=== PATIENT | female | born 1950 | race Caucasian/White ===

== ENCOUNTER → 2018-05-16 | Outpatient (CLI) | payer OTHER | LOC: MC.RAD 07:59 | DX: R92.0 Mammographic microcalcification found on diagnostic imaging of breast (principal); Z98.82 Breast implant status ==

== ENCOUNTER 2021-09-14 07:59 | Day surgery (SDC) | payer OTHER ==
[~2021-09-14] VITALS: Ht 167.6 cm; Wt 95.1 kg
[2021-09-14] VITALS (10 sets, daily range): BP systolic 133–191; BP diastolic 46–70; PULSE 67–81; TEMP 97.6–98.4
[2021-09-14] MEDS ORDERED: COREG12.5 MG PO (09:10)
[2021-09-14] MEDS ORDERED: LANTUS100 U/ML IJ (09:10)
[2021-09-14] MEDS ORDERED: NORVASC 10MG10 MG PO (09:11)
[2021-09-14] MEDS ORDERED: ALTACE 10MG TAB10 MG PO (09:11)
[2021-09-14] MEDS ORDERED: JANUMXR100-1000 PO (09:12)
--- NOTE | 2021-09-14 09:13 | NUR ---
PATIENT STATES SHE CAN HAVE: SULFAMETHOXAZOLE-TMP DS AND CLINDAMYCIN.
--- NOTE | 2021-09-14 11:01 | NUR ---
Patient was taken back to radiology.
--- NOTE | 2021-09-14 11:55 | NUR ---
Patient returned from Radiology.
--- NOTE | 2021-09-14 17:03 | NUR ---
PT VOMIITED ON WAY TO RM FROM PACU AND RETAKE B/P IS 185/62 HR 69, RESP 16, 100%
--- NOTE | 2021-09-14 17:33 | NUR ---
DECREASED O2 FROM 2L BY NC TO 1L BY NC, O2 SAT 100%
--- NOTE | 2021-09-14 18:45 | NUR ---
here to see pt. Update on pt's elevated blood pressures given to provider. Provider okay with BPs now but if starting to stay above 180s call application software developer doctor. Also insulin orders changed by provider.
[2021-09-15 04:00] VITALS: BP 150/54; PULSE 75; TEMP 98.1
[2021-09-15 06:40] LABS: HEMOGLOBIN 11.2 g/dl (12.5-16.0); MEAN CELL VOLUME 92 fl (80.0-100.0); MEAN CORPUSCULAR HEMOGLOBIN 31 pg (27-31); MEAN CORPUSCULAR HGB CONC 34 g/dl (33.0-37.0); MEAN PLATELET VOLUME 10.4 fl (7.4-10.4); PLATELET COUNT 255 K/mm3 (130-400); RED BLOOD COUNT 3.57 M/mm3 (4.10-5.30); REDCELL DISTRIBUTION WIDTH-CV 12.3 % (11.5-14.5)
[2021-09-15 06:43] LABS: HEMATOCRIT 32.8 % (37.0-47.0)
[2021-09-15 06:58] LABS: ALBUMIN 3.1 gm/dL (3.4-4.8); BILIRUBIN,TOTAL 0.6 mg/dL (0.2-1.2); CALCIUM 8.9 mg/dL (8.4-10.2); CREATININE, serum 1.16 mg/dL (0.57-1.11); POTASSIUM 4.7 mmol/L (3.5-4.5)
--- NOTE | 2021-09-15 08:00 | NUR ---
BLOOD GLUCOSE 105. INSULIN NOT GIVEN PER SLIDING SCALE
[2021-09-15 08:13] VITALS: BP 120/90; PULSE 68; TEMP 97.9
--- NOTE | 2021-09-15 09:07 | NUR ---
Initial visit attempt; Nurse with patient, Machine Attendant left card with information regarding the availability of spiritual care at [place].
--- NOTE | 2021-09-15 09:15 | NUR ---
PT PROVIDED HYGIENE OBJECTS AND CLEAN GOWN. EDUCATED ON HOW TO USE PHONE TO CONTACT FAMILY MEMBERS
--- NOTE | 2021-09-15 14:00 | NUR ---
1330 BS 159, INSULIN HELD AT THIS TIME DUE TO PATIENT BEING NPO FOR TESTS. DR GOMEZ NOTIFED AND NO NEW ORDERS AT THIS TIME
[2021-09-15 14:31] VITALS: BP 140/59; PULSE 72; TEMP 97.5
--- NOTE | 2021-09-15 16:50 | NUR ---
DISCHARGED @ 1640 AMBULATORY WITH SPOUSE, WALKED OUT WITH STAFF MEMBER. DISCHARGE INSTRUCTIONS AND SUMMARY OF VISIT DISCUSSED.
== END 2021-09-15 16:40 | disposition home or self-care (01) ==
LOC: SDCO 07:59 → OB 17:00 → SDCO 09-15 16:40
PROVIDERS: Surgery
DX: C50.411 Malignant neoplasm of upper-outer quadrant of right female breast (principal); C77.3 Secondary and unspecified malignant neoplasm of axilla and upper limb lymph nodes; I10 Essential (primary) hypertension; K58.9 Irritable bowel syndrome, unspecified; K76.0 Fatty (change of) liver, not elsewhere classified; K21.9 Gastro-esophageal reflux disease without esophagitis; E11.40 Type 2 diabetes mellitus with diabetic neuropathy, unspecified; E78.00 Pure hypercholesterolemia, unspecified; E55.9 Vitamin D deficiency, unspecified; Z90.49 Acquired absence of other specified parts of digestive tract; Z79.4 Long term (current) use of insulin; Z98.51 Tubal ligation status; Z79.899 Other long term (current) drug therapy; Z80.3 Family history of malignant neoplasm of breast; Z80.42 Family history of malignant neoplasm of prostate
CPT/HCPCS: OP; A9520; J0690; J1815; J2250; J2405; J2550; J2704; J2795; J3010; J7030; Q9967